=== PATIENT | female | born 2000 | race Caucasian/White ===

== ENCOUNTER 2021-10-14 17:13 | Inpatient (IN) | payer BC ==
[~2021-10-14] VITALS: Ht 175.3 cm; Wt 74.4 kg
[2021-10-14 18:20] LABS: HEMOGLOBIN 10.9 gm/dl (12.3-15.3); RED BLOOD COUNT 3.67 M/UL (4.00-5.10)
[2021-10-14] MEDS ORDERED: PRENATAL VITAM1 EAC3 PO (18:42)
[2021-10-14] MEDS ORDERED: FERROUS SULFAT325 M2 PO (18:42)
[2021-10-14] MEDS ORDERED: CLARITIN10 MG PO (18:43)
[2021-10-16 06:22] LABS: HEMOGLOBIN 9.8 gm/dl (12.3-15.3)
[2021-10-17] MEDS ORDERED: IBUPROFEN800 MG PO (09:54)
[2021-10-17] MEDS ORDERED: HYDROCODON-ACE1 EAC4 PO (09:54)
[2021-10-17] MEDS ORDERED: COLACE 100MG C100 MG PO (09:54)
== END 2021-10-17 12:52 | disposition home or self-care (01) | DRG 807 ==
LOC: GENOP 17:13 → OB 17:52
PROVIDERS: ADMIT Obstetrics & Gynecology
PROC: 10E0XZZ Delivery of Products of Conception, External Approach (ICD-10-PCS; principal; 2021-10-15)
PROC: 3E033VJ Introduction of Other Hormone into Peripheral Vein, Percutaneous Approach (ICD-10-PCS; 2021-10-15)
PROC: 0HQ9XZZ Repair Perineum Skin, External Approach (ICD-10-PCS; 2021-10-15)
PROC: 10907ZC Drainage of Amniotic Fluid, Therapeutic from Products of Conception, Via Natural or Artificial Opening (ICD-10-PCS; 2021-10-15)
PROC: 0UQMXZZ Repair Vulva, External Approach (ICD-10-PCS; 2021-10-15)
PROC: 4A1HXCZ Monitoring of Products of Conception, Cardiac Rate, External Approach (ICD-10-PCS; 2021-10-15)
PROC: 3E0234Z Introduction of Serum, Toxoid and Vaccine into Muscle, Percutaneous Approach (ICD-10-PCS; 2021-10-15)
DX: O99.02 Anemia complicating childbirth (principal); Z37.0 Single live birth; O70.0 First degree perineal laceration during delivery; Z3A.39 39 weeks gestation of pregnancy; Z20.822 Contact with and (suspected) exposure to COVID-19; Z82.49 Family history of ischemic heart disease and other diseases of the circulatory system; Z83.3 Family history of diabetes mellitus; Z28.310 Unvaccinated for COVID-19; Z80.0 Family history of malignant neoplasm of digestive organs; D64.9 Anemia, unspecified; O62.2 Other uterine inertia; O99.824 Streptococcus B carrier state complicating childbirth; Z23 Encounter for immunization
CPT/HCPCS: 36415; 81001; 82800; 85014; 85018; 85025; 90471; 90707; 90715; 94761; 96372; J2210; J2405; J2590; J7120